=== PATIENT | male | born 1940 | race Caucasian/White ===

== ENCOUNTER 2019-01-18 13:34 | Observation (INO) | payer MEDICARE, OTHER ==
[~2019-01-18] VITALS: Ht 180.3 cm; Wt 105.2 kg
[~2019-01-18 13:34] MED LIST: AEC81 PO; ALLO300T2 PO; FERR159T2 PO; LORA10TA7 PO; METF-444 PO; METO-409 PO; MULT-264 PO; OMEP20CA10 PO; P-EP-94 PO; SAXA5TAB PO; SILD20TA14 PO; SUCR1TAB2 PO; TAMS0.4C32 PO; VITAMIN B12 COMPLEX PO
[2019-01-18 14:14] LABS: BASOPHILS % (AUTO) 0.7 % (0.0-5.0); EOSINOPHILS % (AUTO) 2.1 % (0.0-8.0); HEMATOCRIT 38.3 % (42-54); LYMPHOCYTES % (AUTO) 24.7 % (21.0-51.0); MEAN CORPUSCULAR HEMOGLOBIN 29.9 pg (27.0-33.0); MEAN CORPUSCULAR HGB CONC 32.8 g/dL (32.0-36.0); MEAN CORPUSCULAR VOLUME 91.2 fL (79-99); MONOCYTES % (AUTO) 7.6 % (3.0-13.0); NEUTROPHILS % (AUTO) 64.9 % (40.0-77.0); NUCLEATED RED BLOOD CELLS 0.1 % (0.0-0.19); PLATELET COUNT (AUTO) 174 K/uL (130-400); RED BLOOD CELL COUNT(AUTO) 4.19 MIL/uL (4.50-6.20); RED CELL DISTRIBUTION WIDTH 14.7 % (11.0-15.5); WHITE BLOOD COUNT (AUTO) 8.8 K/uL (4.8-10.8)
[2019-01-18] MEDS ORDERED: ASPIRIN 325 MG TABLET ONE ×2 (14:17→14:22)
[2019-01-18] MEDS ORDERED: NITROGLYCERIN 50 MG/D5% WATER 1 BOT ONE ×2 (14:18→14:22)
[2019-01-18 14:25] LABS: INR 0.94 (0.85-1.15); PARTIAL THROMBOPLASTIN TIME 28.3 SEC (26.3-35.5); POTASSIUM 4.1 mmol/L (3.5-5.1); PROTHROMBIN TIME 9.9 SEC (9.6-11.6)
[2019-01-18 14:30] LABS: ALBUMIN 3.7 g/dL (3.5-5.0); BILIRUBIN,TOTAL 0.3 mg/dL (0.2-1.0); TOTAL PROTEIN, SERUM 7.3 g/dL (6.0-8.3)
[2019-01-18] MEDS ORDERED: CLONIDINE HCL 0.1 MG TABLET PO PRN (16:45)
[2019-01-18] MEDS ORDERED: DEXTROSE 50%-WATER 50 ML DISP.SYRIN IV PRN (16:45)
[2019-01-18] MEDS ORDERED: GLUCAGON 1MG KIT 1 MG ML IM PRN (16:45)
[2019-01-18 16:51] VITALS: BP 147/91
[2019-01-18 17:48] LABS: TROPONIN I 0.07 ng/mL (0.00-0.06)
[2019-01-18] MEDS ORDERED: LOSARTAN 50 MG TABLET PO SCH (18:00)
[2019-01-18 20:00] VITALS: BP 123/60
[2019-01-18] MEDS: INSULIN R PO SS1 SQ SCH (20:24)
[2019-01-18] MEDS ORDERED: METOPROLOL TARTRATE 25 MG TAB PO SCH (21:00)
[2019-01-18 23:58] LABS: TROPONIN I 0.07 ng/mL (0.00-0.06)
[2019-01-19] VITALS (7 sets, daily range): BP systolic 120–152; BP diastolic 66–82
[2019-01-19] MEDS ORDERED: LISI40TA4 PO (05:21)
[2019-01-19] MEDS ORDERED: ONDA4TAB10 PO (05:21)
[2019-01-19] MEDS ORDERED: SIMV80TA91 PO (05:21)
[2019-01-19] MEDS ORDERED: GLIM2TAB3 PO (05:21)
[2019-01-19] MEDS ORDERED: IBUP-2077 PO (05:21)
[2019-01-19] MEDS: INSULIN R PO SS1 SQ SCH ×4 (05:33→20:57)
[2019-01-19 05:45] LABS: HEMATOCRIT 33.1 % (42-54); MEAN CORPUSCULAR HEMOGLOBIN 30.6 pg (27.0-33.0); MEAN CORPUSCULAR HGB CONC 33.9 g/dL (32.0-36.0); MEAN CORPUSCULAR VOLUME 90.3 fL (79-99); NUCLEATED RED BLOOD CELLS 0.1 % (0.0-0.19); PLATELET COUNT (AUTO) 143 K/uL (130-400); RED BLOOD CELL COUNT(AUTO) 3.66 MIL/uL (4.50-6.20); RED CELL DISTRIBUTION WIDTH 14.5 % (11.0-15.5); WHITE BLOOD COUNT (AUTO) 8.2 K/uL (4.8-10.8)
[2019-01-19 06:04] LABS: ALBUMIN 3.2 g/dL (3.5-5.0); BILIRUBIN,TOTAL 0.5 mg/dL (0.2-1.0); POTASSIUM 3.8 mmol/L (3.5-5.1); TOTAL PROTEIN, SERUM 6.3 g/dL (6.0-8.3); TROPONIN I 0.05 ng/mL (0.00-0.06)
[2019-01-19] MEDS ORDERED: IBUPROFEN PO PRN (06:15)
[2019-01-19] MEDS ORDERED: ONDANSETRON ODT 4 MG TAB PO PRN (06:15)
--- NOTE | 2019-01-19 06:45 | NUR ---
CARDIOLOGY DR. JUDGE IN TO SEE PATIENT. REVIEWED MEDICATIONS AND MADE A FEW CHANGES. NEW ORDERS RECEIVED.
[2019-01-19] MEDS: PANTOPRAZOLE SODIUM 40 MG TABLET.DR PO SCH (06:50)
[2019-01-19] MEDS: LISINOPRIL 40 MG TABLET PO SCH ×2 (08:04→20:57)
[2019-01-19] MEDS: MULTIVITAMIN TABLET PO SCH (08:04)
[2019-01-19] MEDS: VITAMIN B COMPLEX 1 CAPSULE PO SCH (08:04)
[2019-01-19] MEDS: METFORMIN HCL 500 MG TABLET PO SCH ×2 (08:04→16:47)
[2019-01-19] MEDS: GLIMEPIRIDE 2 MG TABLET PO SCH (08:05)
[2019-01-19] MEDS: METOPROLOL TARTRATE 50 MG TAB PO SCH ×2 (08:08→20:57)
[2019-01-19] MEDS: ASPIRIN 81 MG EC TAB PO SCH (08:08)
[2019-01-19] MEDS: LORATADINE/PSEUDOEPHED 5/120 MG 1 EACH TAB.SR.12H PO SCH (08:12)
[2019-01-19] MEDS: ALLOPURINOL 300 MG TABLET PO SCH (08:12)
[2019-01-19] MEDS ORDERED: ACETAMINOPHEN 325 MG TAB PO PRN (11:30)
[2019-01-19] MEDS ORDERED: ACETAMINOPHEN 325 MG TAB ONE (12:39)
[2019-01-19] MEDS ORDERED: SIMVASTATIN 20 MG TABLET PO SCH (21:00)
[2019-01-20 03:46] VITALS: BP 140/74
[2019-01-20] MEDS: INSULIN R PO SS1 SQ SCH (06:36)
[2019-01-20] MEDS: PANTOPRAZOLE SODIUM 40 MG TABLET.DR PO SCH (06:36)
[2019-01-20 07:51] VITALS: BP 151/75
[2019-01-20] MEDS: MULTIVITAMIN TABLET PO SCH (08:14)
[2019-01-20] MEDS: METFORMIN HCL 500 MG TABLET PO SCH (08:14)
[2019-01-20] MEDS: LISINOPRIL 40 MG TABLET PO SCH (08:14)
[2019-01-20] MEDS: VITAMIN B COMPLEX 1 CAPSULE PO SCH (08:14)
[2019-01-20] MEDS: METOPROLOL TARTRATE 50 MG TAB PO SCH (08:14)
[2019-01-20] MEDS: GLIMEPIRIDE 2 MG TABLET PO SCH (08:15)
[2019-01-20] MEDS: ASPIRIN 81 MG EC TAB PO SCH (08:15)
[2019-01-20] MEDS: ALLOPURINOL 300 MG TABLET PO SCH (08:19)
[2019-01-20] MEDS: LORATADINE/PSEUDOEPHED 5/120 MG 1 EACH TAB.SR.12H PO SCH (09:44)
--- NOTE | 2019-01-20 10:15 | NUR ---
INSTRUCTIONS DISCHARGE INSTRUCTIONS GIVEN TO PATIENT AND SPOUSE USING TEACH BACK. IV REMOVED WITH TIP INTACT. DIRECT PRESSURE APPLIED UNTIL BLEEDING CONTROLLED THEN SITE COVERED WITH GAUZE AND SECURED WITH TAPE. F/U APPOINTMENT MADE. NO QUESTIONS OR CONCERNS VOICED.
--- NOTE | 2019-01-20 13:17 | NUR ---
CM NOTES DCING IN OBS STATUS- NO TRIGGERS TO CM, NO CONCERNS VOICED BY PT/RN, DETAILED CM ASSESSMENT DEFERRED AT THIS ITME Addendum: 01/21/19 at 1318 by MAREN GARCIA RN CM Amended: Links added.
== END 2019-01-20 10:30 | disposition home or self-care (01) ==
LOC: EDH 13:34 → EDHIP 15:45 → 3DH 16:41
PROVIDERS: ADMIT Internal Medicine; ATTEND Internal Medicine
DX: R07.89 Other chest pain (principal); E11.9 Type 2 diabetes mellitus without complications; E78.5 Hyperlipidemia, unspecified; H66.90 Otitis media, unspecified, unspecified ear; I10 Essential (primary) hypertension; I16.9 Hypertensive crisis, unspecified; I25.10 Atherosclerotic heart disease of native coronary artery without angina pectoris; I47.1 Supraventricular tachycardia; I87.2 Venous insufficiency (chronic) (peripheral); I99.8 Other disorder of circulatory system; Z88.1 Allergy status to other antibiotic agents; Z88.2 Allergy status to sulfonamides; Z85.828 Personal history of other malignant neoplasm of skin; Z90.2 Acquired absence of lung [part of]; Z79.899 Other long term (current) drug therapy
CPT/HCPCS: 36415 ×2; 71045; 80053 ×2; 82550 ×3; 82948 ×7; 83874 ×3; 84484 ×4; 85025; 85027; 85610; 85730; 93005 ×2; 93306; 99291; G0378 ×43; J3490 ×2

== ENCOUNTER → 2019-07-21 | Outpatient (CLI) | payer MEDICARE ==
[~2019-07-21] MED LIST changes: +GLIM2TAB4 PO; +IBUP-2077 PO; +LISI40TA4 PO; -LORA10TA7 PO; +OMEP-298 PO; -OMEP20CA10 PO; +ONDA4TAB10 PO; -SAXA5TAB PO; +SIMV80TA91 PO; -SUCR1TAB2 PO; -TAMS0.4C32 PO
== END | disposition home or self-care (01) ==
LOC: OIH 14:51
PROVIDERS: ATTEND Internal Medicine
DX: M62.838 Other muscle spasm (principal); M47.24 Other spondylosis with radiculopathy, thoracic region; M25.78 Osteophyte, vertebrae; M47.26 Other spondylosis with radiculopathy, lumbar region; M51.37 Other intervertebral disc degeneration, lumbosacral region
CPT/HCPCS: 72040; 72070; 72100

== ENCOUNTER → 2019-09-28 | Outpatient (CLI) | payer MEDICARE ==
[~2019-09-28] MED LIST changes: +GLIM2TAB30 PO; -GLIM2TAB4 PO; +IOHEXOL-350 50ML VIAL IV ONE; -OMEP-298 PO; +OMEP20CA12 PO
== END | disposition home or self-care (01) ==
LOC: RAH 12:32
PROVIDERS: ATTEND Otolaryngology
DX: R22.1 Localized swelling, mass and lump, neck (principal); M47.812 Spondylosis without myelopathy or radiculopathy, cervical region; M25.78 Osteophyte, vertebrae; I70.0 Atherosclerosis of aorta; I65.22 Occlusion and stenosis of left carotid artery
CPT/HCPCS: 70491; Q9967

== ENCOUNTER 2019-11-21 13:21 | Emergency (ER) | payer MEDICARE ==
[~2019-11-21 13:21] MED LIST changes: +AMLO5TAB9 PO; +CHOL100046 PO; -FERR159T2 PO; +FERS325 PO; +HYDR-4060 PO; -IOHEXOL-350 50ML VIAL IV ONE; +OMEG-89 PO; -ONDA4TAB10 PO; -SILD20TA14 PO; +SUPER B COMPLEX PO; +qunol PO
== END 2019-11-21 14:04 | disposition home or self-care (01) ==
LOC: EDH 13:21
DX: Z43.1 Encounter for attention to gastrostomy (principal); I25.10 Atherosclerotic heart disease of native coronary artery without angina pectoris; E78.5 Hyperlipidemia, unspecified; I10 Essential (primary) hypertension; E11.9 Type 2 diabetes mellitus without complications; Z90.49 Acquired absence of other specified parts of digestive tract; Z87.891 Personal history of nicotine dependence
CPT/HCPCS: 99281

== ENCOUNTER 2019-12-18 09:16 | Inpatient (IN) | payer MEDICARE ==
[~2019-12-18] VITALS: Ht 180.3 cm; Wt 92.2 kg
[2019-12-18 09:49] LABS: APPEARANCE,URINE Clear (CLEAR); BILIRUBIN,URINE Negative (NEGATIVE); COLOR,URINE Yellow (YELLOW); GLUCOSE, URINE (UA) TRACE mg/dL (NEGATIVE); KETONES,URINE Negative (NEGATIVE); LEUKOCYTE ESTERASE ,URINE Negative (NEGATIVE); NITRATE,URINE Negative (NEGATIVE); OCCULT BLOOD,URINE Negative (NEGATIVE); PROTEIN,URINE Trace mg/dL (NEGATIVE); UROBILINOGEN,URINE 0.2 mg/dL (0.2-1.0)
[2019-12-18 09:54] LABS: BASOPHILS % (AUTO) 0.2 % (0.0-5.0); EOSINOPHILS % (AUTO) 0.1 % (0.0-8.0); HEMATOCRIT 31.6 % (42-54); LYMPHOCYTES % (AUTO) 8.7 % (21.0-51.0); MEAN CORPUSCULAR HEMOGLOBIN 26.7 pg (27.0-33.0); MEAN CORPUSCULAR HGB CONC 33.2 g/dL (32.0-36.0); MEAN CORPUSCULAR VOLUME 80.4 fL (79-99); MONOCYTES % (AUTO) 5.1 % (3.0-13.0); NEUTROPHILS % (AUTO) 82.5 % (40.0-77.0); PLATELET COUNT (AUTO) 172 K/uL (130-400); RED BLOOD CELL COUNT(AUTO) 3.93 MIL/uL (4.50-6.20); RED CELL DISTRIBUTION WIDTH 18.5 % (11.0-15.5); WHITE BLOOD COUNT (AUTO) 12.8 K/uL (4.8-10.8)
[2019-12-18 10:02] LABS: CREATININE 1.1 mg/dL (0.5-1.5); POTASSIUM 4.3 mmol/L (3.5-5.1)
[2019-12-18 10:11] LABS: BACTERIA,URINE None Seen /HPF (None Seen); RBC,URINE None Seen /HPF (0-1); SQUAMOUS EPITHELIAL CELL,UR 0-2 /HPF (0-2); WBC,URINE None Seen /HPF (0-1)
[2019-12-18 10:12] LABS: ALBUMIN 2.6 g/dL (3.5-5.0); BILIRUBIN,DIRECT 0.1 mg/dL (0.0-0.3); BILIRUBIN,TOTAL 0.3 mg/dL (0.2-1.0); TOTAL PROTEIN, SERUM 6.6 g/dL (6.0-8.3)
[2019-12-18] MEDS ORDERED: DEXTROSE 50%-WATER 50 ML DISP.SYRIN IV ONE (11:16)
[2019-12-18] MEDS ORDERED: DEXTROSE 5 %-0.45 % NACL 1,000 ML IV ONE (11:17)
[2019-12-18] MEDS ORDERED: LEVOFLOXACIN 500 MG/D5W 100 ML 100 ML ONE (11:31)
[2019-12-18 12:25] VITALS: BP 142/72
[2019-12-18] MEDS: DEXTROSE 10%-WATER 1,000 ML IV SCH ×2 (12:43→21:14)
[2019-12-18] MEDS ORDERED: DEXTROSE 50%-WATER 50 ML DISP.SYRIN IV PRN (13:00)
[2019-12-18] MEDS ORDERED: GLUCAGON 1MG KIT 1 MG ML IM PRN (13:00)
[2019-12-18] MEDS: CEFTRIAXONE SODIUM 1 GM IVP SCH (13:19)
--- NOTE | 2019-12-18 13:55 | NUR ---
DIETITIAN PAGED REGARDING CONSULT. PENDING CB
[2019-12-18] MEDS: IPRATROPIUM/ALBUTEROL SULFATE 3 ML SOLUTION IH SCH ×2 (14:18→22:25)
--- NOTE | 2019-12-18 16:02 | NUR ---
DIETITIAN WALDO RETURNED CALL RECOMMENDED VITAL AF 1.2 BOLUS 4X DAY WITH 80 CC WATER FLUSHES BEFORE AND AFTER FEEDINGS FOR NOW. FIRST BOLUS FEEDING ADMINISTERED. PT TOLERATED WELL SO FAR
[2019-12-18 16:28] VITALS: BP 123/64
--- NOTE | 2019-12-18 17:05 | NUR ---
Kymberly MAHER RN/BELONGINGS HOUSE SUP/MTORRESRN CAME TO DELIVER CELLPHONE, FREELANCE ART DIRECTOR, MEDS AND TOOTHBRUSH THAT PT CAME TO DROP OFF. BELONGINGS GIVEN TO PATIENT WITH QUALITY LEAD WITNESS
[2019-12-18] MEDS ORDERED: LORATADINE/PSEUDOEPHED 5/120 MG 1 EACH TAB.SR.12H PO PRN (18:15)
[2019-12-18] MEDS ORDERED: IBUPROFEN 800 MG TAB PO PRN (18:15)
[2019-12-18] MEDS ORDERED: HYDROCODONE/ACETAMINOPHEN 5/325 MG TAB PO PRN (18:15)
[2019-12-18] MEDS ORDERED: ONDA4SOL PO (18:20)
[2019-12-18] MEDS ORDERED: CALC600T12 PO (18:20)
[2019-12-18] MEDS ORDERED: DIPH1TAB24 PO (18:20)
[2019-12-18] MEDS: METOPROLOL SUCCINATE 50 MG TAB.SR.24H PO SCH (19:52)
[2019-12-18] MEDS: SIMVASTATIN 20 MG TABLET PO SCH (19:52)
[2019-12-18] MEDS: GLIMEPIRIDE 2 MG TABLET PO SCH (19:53)
[2019-12-18] MEDS: FISH OIL 1000 MG/CAP PO SCH (19:53)
[2019-12-18] MEDS: METFORMIN HCL 500 MG TABLET PO SCH (19:53)
--- NOTE | 2019-12-18 20:00 | NUR ---
ROUNDS PATIENT AWAKE AND ALERT. VOICES ALL NEEDS. NO COMPLAINTS OF PAIN VOICED AT THIS TIME. VITALS STABLE. AFEBRILE. RESP EVEN AND UNLABORED. NO SOB NOTED. ON ROOM AIR. VITAL AF 1.2 FLOR GIVEN VIA PEG TUBE. PLACEMENT VERIFIED VIA AIR BOLUS. NO RESIDUALS NOTED. TOLERATED FEEDING WELL. WELL. NO NAUSEA OR VOMITING NOTED. UP WITH ASSIST. BLOOD SUGAR WNL. NO SIGNS OR SYMPTOMS OF HYPO OR HYPERGLYCEMIA NOTED AT THIS TIME. NO SIGNS OF DISTRESS NOTED. CALL LIGHT WITHIN REACH. WILL CONTINUE TO BE OBSERVED. Addendum: 12/18/19 at 4274 by TOSHIA RANGEL RN RN Amended: Links added.
[2019-12-18 20:04] VITALS: BP 118/61
[2019-12-18 23:44] VITALS: BP 117/69
[2019-12-19 03:38] VITALS: BP 109/61
[2019-12-19 05:20] LABS: BASOPHILS % (AUTO) 0.4 % (0.0-5.0); EOSINOPHILS % (AUTO) 0.3 % (0.0-8.0); LYMPHOCYTES % (AUTO) 14.8 % (21.0-51.0); MEAN CORPUSCULAR HEMOGLOBIN 26.8 pg (27.0-33.0); MEAN CORPUSCULAR HGB CONC 32.9 g/dL (32.0-36.0); MEAN CORPUSCULAR VOLUME 81.4 fL (79-99); MONOCYTES % (AUTO) 4.8 % (3.0-13.0); PLATELET COUNT (AUTO) 176 K/uL (130-400); RED BLOOD CELL COUNT(AUTO) 3.81 MIL/uL (4.50-6.20); WHITE BLOOD COUNT (AUTO) 10.4 K/uL (4.8-10.8)
[2019-12-19 05:42] LABS: POTASSIUM 4.6 mmol/L (3.5-5.1)
[2019-12-19] MEDS: IPRATROPIUM/ALBUTEROL SULFATE 3 ML SOLUTION IH SCH ×3 (06:42→21:18)
[2019-12-19] MEDS: METFORMIN HCL 500 MG TABLET PO SCH ×2 (08:00→18:25)
[2019-12-19 08:32] VITALS: BP 134/71
[2019-12-19] MEDS: FISH OIL 1000 MG/CAP PO SCH ×2 (09:00→20:53)
[2019-12-19] MEDS ORDERED: PANTOPRAZOLE SODIUM 40 MG TABLET.DR PO SCH (09:00)
[2019-12-19] MEDS: **HM**Cholecalciferol (Vitamin D3) (Vitamin D3) 25 MCG PO SCH (09:00)
[2019-12-19] MEDS ORDERED: ASPIRIN 81 MG EC TAB PO SCH (09:00)
[2019-12-19] MEDS: MULTIVITAMIN TABLET PO SCH (09:00)
[2019-12-19] MEDS ORDERED: FERROUS SULFATE 325 MG TABLET.DR PO SCH (09:00)
[2019-12-19] MEDS: GLIMEPIRIDE 2 MG TABLET PO SCH ×2 (09:00→20:53)
[2019-12-19] MEDS: QUNOL PO SCH (09:00)
[2019-12-19] MEDS ORDERED: LISINOPRIL 40 MG TABLET PO SCH (09:00)
[2019-12-19] MEDS: VITAMIN B12 COMPLEX PO SCH (09:00)
[2019-12-19] MEDS ORDERED: PHARMACY COMMUNICATION MISC SCH (10:15)
[2019-12-19 11:44] VITALS: BP 120/61
--- NOTE | 2019-12-19 13:15 | NUR ---
INITIAL SPOKE TO SPOUSE RADHA VIA PHONE- PATIENT LIVES W HER, [facility], 3 STEPS UP TO HOUSE, NO TROUBLE W STAIRS, INDEPENDENT BUT WEEK, HAS BENCH IN SHOWER, NO DME YET, [place] STATES WAS GOING TO SET THEM UP WITH RW AND KENNETHE- NO PROVIDER; PT HAVING DIARRHEA FROM PEG TUBE FEEDING, SPOUSE REQUESING DIET CONSULT . PATIENT HAS HAD ONE DOSE OF CHEMO , NEXT DUE NEXT THURSDAY . SPOUSE CONCERNED RE DEBILITY AND DIARRHEA. ORDER PLACED FOR RD. DCP TO HOME Addendum: 12/19/19 at 1452 by MAREN GARCIA RN Amended: Links added.
[2019-12-19] MEDS: CEFTRIAXONE SODIUM 1 GM IVP SCH (13:47)
[2019-12-19] MEDS: VITAMIN B COMPLEX 1 CAPSULE PO SCH (13:48)
[2019-12-19] MEDS: ALLOPURINOL 300 MG TABLET PO SCH (13:49)
[2019-12-19] MEDS: AMLODIPINE BESYLATE 5 MG TAB PO SCH (13:50)
--- NOTE | 2019-12-19 15:36 | NUR ---
RD NOTIFICATION - TUBE FEEDING RECOMMENDATIONS Recommend Bolus tube feeding: Vital AF 1.2, 6 cans/day (6AM - 1.5cans, 10AM - 1can, 2PM - 1can, 6PM - 1 can, 10PM - 1.5cans) Flushes: 35mls before and after each feeding. Recommend discontinue IV dextrose, as medically feasible Pt admitted with Hypoglycemia, PNA. Pt reports intolerance to Glucerna 1.5 with nausea/vomiting. Noted elevated BG (297) with antibiotics and IV dextrose. RD to continue to monitor. Please notify as additional nutrition concerns arise. Thank you. Addendum: 12/19/19 at [address] Amended: Links added.
[2019-12-19 16:36] VITALS: BP 106/57
[2019-12-19 20:00] VITALS: BP 119/76
--- NOTE | 2019-12-19 20:10 | NUR ---
PAGE DR HARRIS PAGED AND VOICE MESSAGE LEFT TO VOICE MAIL TO CALL BACK BY ROOMING HOUSE INSPECTOR. AWAITING CALL BACK.
--- NOTE | 2019-12-19 20:46 | NUR ---
MD DR HARRIS CALLED BACK AND REFERRED PT'S ELEVATED BLOOD SUGAR AND IVF OF D10. NEW ORDERS GIVEN, PLEASE REFER TO CPOE. KEPT PIV SALINE LOCKED.
[2019-12-19] MEDS: METOPROLOL SUCCINATE 50 MG TAB.SR.24H PO SCH (20:52)
[2019-12-19] MEDS: SIMVASTATIN 20 MG TABLET PO SCH (20:53)
--- NOTE | 2019-12-19 20:55 | NUR ---
MEDS SHIFT ASSESSMENT DONE, PLEASE REFER TO CHART. DUE MEDS ADMINISTERED, VIA PEG TUBE, TOLERATED WELL. PT VERBALIZES OF SORE THROAT AND ACID REFLUX. ASSURED PT THAT MD IS BEING PAGED AND AWAITING CALL BACK. WILL REFER COMPLAINTS. Addendum: 12/20/19 at 0108 by TRAN LOMBARDI RN RN Amended: Links added.
[2019-12-19] MEDS ORDERED: PHENOL 177 ML BOTTLE PO PRN ×2 (22:30→23:30)
--- NOTE | 2019-12-19 22:30 | NUR ---
SHOWER PT STILL IN THE SHOWER, TOLERATING ACTIVITY WELL. WILL RE-CHECK FOR DUE PEG FEEDING.
[2019-12-20] VITALS: BP 109/58
--- NOTE | 2019-12-20 02:00 | NUR ---
ROUNDS PT RESTING WELL, FAIRLY ASLEEP. NO DISTRESS NOTED. KEPT UNDISTURBED FOR NOW. WILL MONITOR PT. CALL LIGHT WITHIN REACH.
[2019-12-20 04:24] VITALS: BP 111/63
[2019-12-20 05:54] LABS: BASOPHILS % (AUTO) 0.2 % (0.0-5.0); EOSINOPHILS % (AUTO) 0.3 % (0.0-8.0); HEMATOCRIT 32.9 % (42-54); LYMPHOCYTES % (AUTO) 10.2 % (21.0-51.0); MEAN CORPUSCULAR HEMOGLOBIN 26.9 pg (27.0-33.0); MEAN CORPUSCULAR HGB CONC 33.1 g/dL (32.0-36.0); MEAN CORPUSCULAR VOLUME 81.2 fL (79-99); MONOCYTES % (AUTO) 4.8 % (3.0-13.0); NEUTROPHILS % (AUTO) 81.5 % (40.0-77.0); PLATELET COUNT (AUTO) 234 K/uL (130-400); RED BLOOD CELL COUNT(AUTO) 4.05 MIL/uL (4.50-6.20); RED CELL DISTRIBUTION WIDTH 19.2 % (11.0-15.5); WHITE BLOOD COUNT (AUTO) 12.2 K/uL (4.8-10.8)
--- NOTE | 2019-12-20 06:10 | NUR ---
FEED PT ALREADY AWAKE, DENIES ANY CONCERNS AT THIS TIME. SLEPT AT INTERVALS DURING THE SHIFT. DUE FEEDING OF VITAL AF GIVEN WITH WATER FLUSHES. PT TOLERATED FEEDING WELL. KEPT RESTED WITH HOB ELEVATED. FOR MORE CARE.
[2019-12-20 06:13] LABS: POTASSIUM 4.1 mmol/L (3.5-5.1)
[2019-12-20] MEDS: IPRATROPIUM/ALBUTEROL SULFATE 3 ML SOLUTION IH SCH ×2 (06:32→13:34)
--- NOTE | 2019-12-20 07:00 | NUR ---
MD DR HARRIS IN TO SEE PT. D/C ORDERS GIVEN, PLEASE REFER TO CPOE. ENDORSED TO TIARRA SORIANO NURSE, FOR MORE CARE AND MANAGEMENT. NURSE'S ROUNDS DONE.
[2019-12-20 08:00] VITALS: BP 107/64
[2019-12-20] MEDS: VITAMIN B12 COMPLEX PO SCH (09:00)
[2019-12-20] MEDS ORDERED: FERROUS SULFATE 300 MG/5 ML LIQ UDCUP PO SCH (09:00)
[2019-12-20] MEDS ORDERED: LISINOPRIL 20 MG TABLET PO SCH (09:00)
[2019-12-20] MEDS: QUNOL PO SCH (09:00)
[2019-12-20] MEDS ORDERED: LANSOPRAZOLE 15 MG SOLU TAB NG SCH (09:00)
[2019-12-20] MEDS: **HM**Cholecalciferol (Vitamin D3) (Vitamin D3) 25 MCG PO SCH (09:00)
[2019-12-20] MEDS ORDERED: ASPIRIN 81MG TAB.CHEW PO SCH (09:00)
--- NOTE | 2019-12-20 10:00 | NUR ---
CM note: [facility] pending approval and delivery; [facility] pending approval CM spoke to pt's spouse regarding peg feeding and HH, spouse agreeable, telephone consent IZABEL obtained for [facility] and [facility]. Faxed order and script, clinicals to [facility] and [facility], confirmation received. Pt pending approval and delivery w/[facility] for peg tube feeding and pending approval for [facility]. Primary nurse aware. CM to cont to follow up.
[2019-12-20] MEDS: METFORMIN HCL 500 MG TABLET PO SCH (10:17)
[2019-12-20] MEDS: MULTIVITAMIN TABLET PO SCH (10:18)
[2019-12-20] MEDS: VITAMIN B COMPLEX 1 CAPSULE PO SCH (10:21)
[2019-12-20] MEDS: FISH OIL 1000 MG/CAP PO SCH (10:22)
[2019-12-20] MEDS: GLIMEPIRIDE 2 MG TABLET PO SCH (10:23)
[2019-12-20] MEDS: AMLODIPINE BESYLATE 5 MG TAB PO SCH (10:24)
[2019-12-20] MEDS: ALLOPURINOL 300 MG TABLET PO SCH (10:29)
[2019-12-20 12:00] VITALS: BP 119/68
[2019-12-20] MEDS: CEFTRIAXONE SODIUM 1 GM IVP SCH (13:17)
--- NOTE | 2019-12-20 16:16 | NUR ---
CM Note: [facility] approval. CM spoke to [place] w/[facility], pt has approval. Will follow up w/[facility] for peg feeding delivery at home. Nurse to give pt 3 days worth feeding cans for now. Primary nurse aware. CM to cont to follow up.
--- NOTE | 2019-12-20 16:27 | NUR ---
RD UPDATE - BOLUS TUBE FEEDING DISCHARGE Pt to discharge with Bolus feedings, per RN. Recommend: Vital AF 1.2, 6 cans/day to provide: 1704kcal, 107gm protein, 1152ml H2O) (6AM - 1.5cans, 10AM - 1can, 2PM - 1can, 6PM - 1 can, 10PM - 1.5cans) Recommended Flushes: 55mls before and after each feeding. RN notified. Please notify RD as additional concerns arise. Thank you.
--- NOTE | 2019-12-20 18:30 | NUR ---
REPORT ON PT GIVEN TO PREETI LOERA RN AT [facility].
== END 2019-12-20 18:20 | disposition home health service (06) | DRG 637 ==
LOC: EDH 09:16 → EDHIP 11:28 → 3AH 12:19
PROVIDERS: ADMIT Internal Medicine; ATTEND Internal Medicine
DX: E11.649 Type 2 diabetes mellitus with hypoglycemia without coma (principal); J18.9 Pneumonia, unspecified organism; I25.10 Atherosclerotic heart disease of native coronary artery without angina pectoris; E86.0 Dehydration; E78.5 Hyperlipidemia, unspecified; I10 Essential (primary) hypertension; Z93.1 Gastrostomy status; Z88.0 Allergy status to penicillin; Z88.2 Allergy status to sulfonamides; Z88.8 Allergy status to other drugs, medicaments and biological substances; Z87.11 Personal history of peptic ulcer disease; Z85.21 Personal history of malignant neoplasm of larynx
CPT/HCPCS: 36415; 71045; 80048; 80076; 81001; 82550; 82948; 83605; 84484; 85025; 87040; 93005; 94640; 94664; 99291; G0378; J0696; J1956; J3490; J7042; J7070